=== PATIENT | male | born 1980 | race Caucasian/White ===

== ENCOUNTER 2018-08-13 03:31 | Emergency (ER) | payer OTHER ==
[2018-08-13] MEDS ORDERED: Povidone Iodine Oint 10% Foilpak UD ONE (03:42)
[2018-08-13 03:52] VITALS: BMI 26.5
[2018-08-13 04:01] VITALS: BP 125/69; PULSE 115; RESP 18; TEMP 98.4; O2SAT 96
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
== END 2018-08-13 05:10 | disposition home or self-care (01) ==
LOC: H.ER 03:31
DX: S80.11XA Contusion of right lower leg, initial encounter (principal); Y04.0XXA Assault by unarmed brawl or fight, initial encounter; Y93.9 Activity, unspecified; Y99.0 Civilian activity done for income or pay